=== PATIENT | male | born 1955 | race African-American/Black ===

== ENCOUNTER 2017-03-29 09:27 | Emergency (ER) | payer MEDICAID, OTHER ==
[~2017-03-29] VITALS: Ht 172.7 cm; Wt 105.0 kg
[~2017-03-29 09:27] MED LIST: AMLO10TA80 PO; ASPI-1158 PO; INSLAN SQ; LANTUS; LISI2.5T47 PO; METF500T4 PO
[2017-03-29 10:05] VITALS: BP 132/62
[2017-03-29] MEDS ORDERED: KETOROLAC 60MG/2ML VIAL IM ONE (12:00)
== END 2017-03-29 12:31 | disposition left against medical advice (07) ==
LOC: ER 09:55
DX: R10.31 Right lower quadrant pain (principal); J45.909 Unspecified asthma, uncomplicated; I10 Essential (primary) hypertension; E11.9 Type 2 diabetes mellitus without complications; I25.119 Atherosclerotic heart disease of native coronary artery with unspecified angina pectoris; Z88.0 Allergy status to penicillin; Z88.5 Allergy status to narcotic agent; Z79.82 Long term (current) use of aspirin; Z79.4 Long term (current) use of insulin
CPT/HCPCS: 99281; Z7610

== ENCOUNTER 2017-04-28 10:27 | Emergency (ER) | payer MEDICAID ==
[~2017-04-28] VITALS: Ht 172.7 cm; Wt 105.0 kg
[2017-04-28 10:35] VITALS: BP 130/69
== END 2017-04-28 14:55 | disposition left against medical advice (07) ==
LOC: ER 11:29
DX: Z53.21 Procedure and treatment not carried out due to patient leaving prior to being seen by health care provider (principal); E11.9 Type 2 diabetes mellitus without complications
CPT/HCPCS: 82962

== ENCOUNTER 2017-05-12 16:22 | Emergency (ER) | payer MEDICAID ==
[~2017-05-12] VITALS: Ht 172.7 cm; Wt 104.0 kg
[2017-05-12 16:26] VITALS: BP 144/75
== END 2017-05-12 19:13 | disposition left against medical advice (07) ==
LOC: ER 16:46
DX: R41.0 Disorientation, unspecified (principal); R42 Dizziness and giddiness; Z53.21 Procedure and treatment not carried out due to patient leaving prior to being seen by health care provider
CPT/HCPCS: 82962; Z7610

== ENCOUNTER 2017-05-25 20:26 | Emergency (ER) | payer MEDICAID ==
[~2017-05-25] VITALS: Ht 172.7 cm; Wt 104.5 kg
[2017-05-25] MEDS ORDERED: ASPIRIN 325MG TABLET PO ONE (23:30)
[2017-05-25 23:52] LABS: BASOPHILS % 0.8 % (0.0-2.0); EOSINOPHILS % 4.8 % (0.0-5.0); HEMOGLOBIN. 13.7 g/dL (14.0-18.0); LYMPHOCYTES % 26.4 % (20.0-50.0); MEAN CORPUSCULAR HEMOGLOBIN 30.3 pg (28.0-32.0); MEAN PLATELET VOLUME 9.3 fl (7.4-10.4); MONOCYTES % 7.4 % (2.0-8.0); NEUTROPHILS % 60.6 % (40.0-76.0); PLATELET 189 x1000/uL (130-400); RED BLOOD CELL COUNT 4.51 mill/uL (4.7-6.1); RED CELL DISTRIBUTION WIDTH 14.3 % (11.6-14.6)
[2017-05-26 00:08] LABS: CARBON DIOXIDE 23 mEq/L (21-32); CHLORIDE 104 mEq/L (98-107); TROPONIN I < 0.02 ng/mL (0.00-0.04)
[2017-05-26 00:33] VITALS: BP 149/81
== END 2017-05-26 00:33 | disposition home or self-care (01) ==
LOC: ER 21:13
DX: R07.9 Chest pain, unspecified (principal); E11.65 Type 2 diabetes mellitus with hyperglycemia; J45.909 Unspecified asthma, uncomplicated; I10 Essential (primary) hypertension; Z79.4 Long term (current) use of insulin; Z79.82 Long term (current) use of aspirin; Z88.0 Allergy status to penicillin; Z88.5 Allergy status to narcotic agent
CPT/HCPCS: 36415; 71045; 80053; 82962; 83690; 84484; 85025; 93005; 99285

== ENCOUNTER 2018-02-16 06:31 | Emergency (ER) | payer MEDICAID ==
[~2018-02-16] VITALS: Ht 172.7 cm; Wt 84.0 kg
[~2018-02-16 06:31] MED LIST changes: +METF-414 PO; -METF500T4 PO
[2018-02-16] MEDS ORDERED: SODIUM CHLORIDE 0.9% 1,000 ML IV ONE ×3 (08:23→09:30)
[2018-02-16 08:33] LABS: BASOPHILS % 0.6 % (0.0-2.0); EOSINOPHILS % 2.9 % (0.0-5.0); HEMATOCRIT. 41.2 % (42.0-52.0); LYMPHOCYTES % 17.8 % (20.0-50.0); MEAN CORPUSCULAR HEMOGLOBIN 33.6 pg (28.0-32.0); MEAN CORPUSCULAR VOLUME 98.7 fL (80.0-94.0); MEAN PLATELET VOLUME 10.4 fl (7.4-10.4); MONOCYTES % 10.5 % (2.0-8.0); NEUTROPHILS % 68.2 % (40.0-76.0); PLATELET 188 x1000/uL (130-400); RED BLOOD CELL COUNT 4.18 mill/uL (4.7-6.1); RED CELL DISTRIBUTION WIDTH 14.1 % (11.6-14.6)
[2018-02-16] MEDS ORDERED: INSULIN REGULAR (HUMULIN R) 300UNITS/3ML IV ONE ×2 (08:45→09:40)
[2018-02-16 08:49] LABS: CHLORIDE 100 mEq/L (98-107)
[2018-02-16 08:55] LABS: PHOSPHORUS 3.9 mg/dL (2.5-4.9)
[2018-02-16 09:19] LABS: CLARITY URINE CLEAR (CLEAR); COLOR URINE YELLOW (YELLOW); KETONES URINE NEGATIVE (NEGATIVE); LEUKOCYTE ESTERASE URINE NEGATIVE (NEGATIVE); NITRITE URINE NEGATIVE (NEGATIVE); OCCULT BLOOD URINE NEGATIVE (NEGATIVE); PH URINE 5.5 (4.5-8.0); PROTEIN URINE NEGATIVE (NEGATIVE); SPECIFIC GRAVITY URINE 1.036 (1.005-1.030); UROBILINOGEN URINE 0.2 E.U./dL (0.2-1.0)
[2018-02-16] MEDS ORDERED: INSULIN REGULAR (HUMULIN R) UD 100 UNITS/ML SYR IV ONE (09:30)
[2018-02-16 09:33] LABS: *AMPHETAMINES SCREEN URINE NEGATIVE (NEGATIVE); *BARBITURATES SCREEN URINE NEGATIVE (NEGATIVE)
[2018-02-16 09:34] LABS: *BENZODIAZEPINES SCREEN URINE NEGATIVE (NEGATIVE); *COCAINE SCREEN URINE PRESUMTIVE POSITIVE (NEGATIVE); CANNABINOID URINE SCREEN NEGATIVE (NEGATIVE); METHADONE URINE SCREEN NEGATIVE (NEGATIVE); OPIATES URINE SCREEN NEGATIVE (NEGATIVE); PHENCYCLIDINE URINE SCREEN NEGATIVE (NEGATIVE)
[2018-02-16 12:26] VITALS: BP 110/72
== END 2018-02-16 12:29 | disposition home or self-care (01) ==
LOC: ER 06:31
DX: E11.65 Type 2 diabetes mellitus with hyperglycemia (principal); M79.672 Pain in left foot; M79.671 Pain in right foot; F17.200 Nicotine dependence, unspecified, uncomplicated; Z88.0 Allergy status to penicillin; Z88.5 Allergy status to narcotic agent; Z79.899 Other long term (current) drug therapy
CPT/HCPCS: 36415; 80053; 80305; 81003; 82962; 83735; 84100; 84484; 85025; 93005; 96361; 96374; 99285; J1815; J7030

== ENCOUNTER 2018-04-01 21:20 | Inpatient (IN) | payer MEDICAID ==
[~2018-04-01] VITALS: Ht 172.7 cm; Wt 76.2 kg
[2018-04-02] MEDS ORDERED: SODIUM CHLORIDE 0.9% 1,000 ML IV ONE ×2 (00:05→03:25)
[2018-04-02] MEDS ORDERED: INSULIN REGULAR (HUMULIN R) 300UNITS/3ML SUBCUT ONE (00:15)
[2018-04-02 00:37] LABS: BASOPHILS % 0.6 % (0.0-2.0); EOSINOPHILS % 2.2 % (0.0-5.0); HEMOGLOBIN. 14.8 g/dL (14.0-18.0); LYMPHOCYTES % 22.3 % (20.0-50.0); MEAN CORPUSCULAR HEMOGLOBIN 33.8 pg (28.0-32.0); MEAN CORPUSCULAR VOLUME 100.3 fL (80.0-94.0); MONOCYTES % 8.6 % (2.0-8.0); NEUTROPHILS % 66.3 % (40.0-76.0); PLATELET 180 x1000/uL (130-400); RED BLOOD CELL COUNT 4.39 mill/uL (4.7-6.1); RED CELL DISTRIBUTION WIDTH 14.4 % (11.6-14.6)
[2018-04-02 00:43] LABS: CHLORIDE 96 mEq/L (98-107)
[2018-04-02 00:47] LABS: ETHANOL BLOOD < 10 mg/dL
[2018-04-02 00:51] LABS: BETA HYDROXYBUTYRATE 0.7 mMol/L (0.0-0.3)
[2018-04-02 01:41] LABS: INR 0.9; PROTHROMBIN TIME 9.4 sec (9.1-11.1)
[2018-04-02 02:13] LABS: CLARITY URINE CLEAR (CLEAR); COLOR URINE YELLOW (YELLOW); KETONES URINE TRACE (NEGATIVE); LEUKOCYTE ESTERASE URINE NEGATIVE (NEGATIVE); NITRITE URINE NEGATIVE (NEGATIVE); OCCULT BLOOD URINE NEGATIVE (NEGATIVE); PH URINE 5.5 (4.5-8.0); PROTEIN URINE NEGATIVE (NEGATIVE); SPECIFIC GRAVITY URINE 1.038 (1.005-1.030); UROBILINOGEN URINE 0.2 E.U./dL (0.2-1.0)
[2018-04-02 02:23] LABS: *AMPHETAMINES SCREEN URINE NEGATIVE (NEGATIVE); *BARBITURATES SCREEN URINE NEGATIVE (NEGATIVE); *BENZODIAZEPINES SCREEN URINE NEGATIVE (NEGATIVE); *COCAINE SCREEN URINE PRESUMTIVE POSITIVE (NEGATIVE); METHADONE URINE SCREEN NEGATIVE (NEGATIVE); OPIATES URINE SCREEN NEGATIVE (NEGATIVE)
[2018-04-02 02:24] LABS: CANNABINOID URINE SCREEN NEGATIVE (NEGATIVE); PHENCYCLIDINE URINE SCREEN NEGATIVE (NEGATIVE)
[2018-04-02] MEDS ORDERED: ACETAMINOPHEN 325MG TABLET PO PRN (08:45)
[2018-04-02] MEDS ORDERED: DEXTROSE 50% WATER 50ML SYRINGE IV PRN (08:45)
[2018-04-02] MEDS ORDERED: ONDANSETRON HCL 4MG/2ML INJ IV PRN (08:45)
[2018-04-02] MEDS ORDERED: CLONIDINE 0.1MG TABLET PO PRN (08:45)
[2018-04-02 13:00] VITALS: BP 159/100
[2018-04-02 13:15] VITALS: BP 159/100
[2018-04-02] MEDS: INSULIN LISPRO 100 UNITS/ML SUBCUT SCH ×3 (15:17→21:58)
[2018-04-02 16:40] VITALS: BP 140/76
[2018-04-02] MEDS: BLOOD SUGAR DIAGNOSTIC STRIP TEST SCH ×2 (18:10→21:00)
[2018-04-02 18:54] VITALS: BP 159/88
[2018-04-02] MEDS: AMLODIPINE 5MG TABLET PO SCH ×2 (19:02→20:22)
[2018-04-02] MEDS: SODIUM CHLORIDE 0.45% 1,000 ML IV SCH ×2 (19:12→19:19)
[2018-04-02] MEDS ORDERED: INSULIN LISPRO 100 UNITS/ML SUBCUT SCH (19:45)
[2018-04-02 19:56] VITALS: BP 147/80
[2018-04-02] MEDS: LOSARTAN POTASSIUM 50 MG TABLET PO SCH (20:23)
[2018-04-02] MEDS ORDERED: INSULIN LISPRO 100 UNITS/ML SUBCUT NR (22:00)
[2018-04-02] MEDS ORDERED: INSULIN GLARGINE UD 100 UNITS/ML SYR SUBCUT SCH (22:00)
[2018-04-02] MEDS: INSULIN GLARGINE UD 100 UNITS/ML SYR SUBCUT SCH (22:02)
[2018-04-03] VITALS (7 sets, daily range): BP systolic 122–140; BP diastolic 67–89
[2018-04-03] MEDS: SODIUM CHLORIDE 0.45% 1,000 ML IV SCH ×3 (05:40→18:47)
[2018-04-03] MEDS: BLOOD SUGAR DIAGNOSTIC STRIP TEST SCH ×4 (05:47→20:41)
[2018-04-03] MEDS: GLIPIZIDE 5MG TABLET PO SCH (06:10)
[2018-04-03 08:08] LABS: BASOPHILS % 0.8 % (0.0-2.0); EOSINOPHILS % 2.2 % (0.0-5.0); HEMATOCRIT. 45.1 % (42.0-52.0); HEMOGLOBIN. 15.5 g/dL (14.0-18.0); LYMPHOCYTES % 20.6 % (20.0-50.0); MEAN CORPUSCULAR VOLUME 99.1 fL (80.0-94.0); MEAN PLATELET VOLUME 9.7 fl (7.4-10.4); MONOCYTES % 8.5 % (2.0-8.0); NEUTROPHILS % 67.9 % (40.0-76.0); PLATELET 187 x1000/uL (130-400); RED BLOOD CELL COUNT 4.55 mill/uL (4.7-6.1); RED CELL DISTRIBUTION WIDTH 14.3 % (11.6-14.6)
[2018-04-03] MEDS: LOSARTAN POTASSIUM 50 MG TABLET PO SCH (08:20)
[2018-04-03] MEDS: AMLODIPINE 5MG TABLET PO SCH ×2 (08:21→20:40)
[2018-04-03] MEDS: INSULIN LISPRO 100 UNITS/ML SUBCUT SCH ×4 (08:24→20:41)
[2018-04-03 08:55] LABS: CHLORIDE 98 mEq/L (98-107)
[2018-04-03] MEDS: INSULIN GLARGINE UD 100 UNITS/ML SYR SUBCUT SCH ×2 (11:12→21:55)
[2018-04-03] MEDS ORDERED: NAPHAZOLINE HCL/PHENIR MAL OPHTH SOLN 15ML BOTHEYE PRN (13:45)
[2018-04-04] VITALS: BP 116/68
[2018-04-04] MEDS: SODIUM CHLORIDE 0.45% 1,000 ML IV SCH ×3 (01:43→09:53)
[2018-04-04 04:00] VITALS: BP 121/73
[2018-04-04] MEDS: GLIPIZIDE 5MG TABLET PO SCH (06:19)
[2018-04-04] MEDS: INSULIN LISPRO 100 UNITS/ML SUBCUT SCH ×2 (06:19→13:04)
[2018-04-04] MEDS: BLOOD SUGAR DIAGNOSTIC STRIP TEST SCH ×2 (06:19→11:25)
[2018-04-04 07:02] LABS: BASOPHILS % 0.6 % (0.0-2.0); EOSINOPHILS % 2.5 % (0.0-5.0); HEMATOCRIT. 44.2 % (42.0-52.0); HEMOGLOBIN. 14.9 g/dL (14.0-18.0); LYMPHOCYTES % 26.8 % (20.0-50.0); MEAN CORPUSCULAR HEMOGLOBIN 33.8 pg (28.0-32.0); MEAN CORPUSCULAR VOLUME 100.2 fL (80.0-94.0); MEAN PLATELET VOLUME 10.2 fl (7.4-10.4); MONOCYTES % 8.5 % (2.0-8.0); NEUTROPHILS % 61.6 % (40.0-76.0); PLATELET 184 x1000/uL (130-400); RED BLOOD CELL COUNT 4.42 mill/uL (4.7-6.1)
[2018-04-04 08:00] VITALS: BP 131/65
[2018-04-04 08:14] LABS: CHLORIDE 104 mEq/L (98-107)
[2018-04-04] MEDS: AMLODIPINE 5MG TABLET PO SCH (08:21)
[2018-04-04] MEDS: LOSARTAN POTASSIUM 50 MG TABLET PO SCH (08:21)
[2018-04-04] MEDS: INSULIN GLARGINE UD 100 UNITS/ML SYR SUBCUT SCH (09:43)
[2018-04-04 12:00] VITALS: BP 129/72
[2018-04-04] MEDS ORDERED: AMLO5TAB88 PO (12:21)
[2018-04-04] MEDS ORDERED: LANTUSUD SUBCUT (12:21)
[2018-04-04] MEDS ORDERED: GLIP5TAB12 PO (12:21)
[2018-04-04] MEDS ORDERED: LOSA50TA3 PO (12:21)
[2018-04-04 14:22] VITALS: BP 129/72
== END 2018-04-04 16:20 | disposition home or self-care (01) | DRG 420 ==
LOC: ER 21:20 → EDBEDREQ 04-02 02:56 → EDBEDREQTM 04-02 02:56 → ENRESERV 04-02 10:10 → CANRESERV 04-02 10:10 → ENRESERV 04-02 11:47 → 8WST 04-02 13:11
PROVIDERS: ADMIT Internal Medicine; ATTEND Internal Medicine
DX: E11.65 Type 2 diabetes mellitus with hyperglycemia (principal); K85.90 Acute pancreatitis without necrosis or infection, unspecified; E87.8 Other disorders of electrolyte and fluid balance, not elsewhere classified; E44.1 Mild protein-calorie malnutrition; I10 Essential (primary) hypertension; E87.1 Hypo-osmolality and hyponatremia; J45.909 Unspecified asthma, uncomplicated; F14.90 Cocaine use, unspecified, uncomplicated; H10.219 Acute toxic conjunctivitis, unspecified eye; T50.905A Adverse effect of unspecified drugs, medicaments and biological substances, initial encounter; Y92.89 Other specified places as the place of occurrence of the external cause; Z59.0 Homelessness; Z91.19 Patient's noncompliance with other medical treatment and regimen; Z88.0 Allergy status to penicillin; Z88.5 Allergy status to narcotic agent; Z79.899 Other long term (current) drug therapy; Z68.25 Body mass index [BMI] 25.0-25.9, adult
CPT/HCPCS: 36415; 71045; 80048; 80305; 82010; 82962; 83036; 93005; 96372; 99285; G0482; J1815; J7030

== ENCOUNTER 2020-03-01 07:16 | Emergency (ER) | payer MEDICAID, OTHER ==
[~2020-03-01] VITALS: Ht 172.7 cm; Wt 77.0 kg
[~2020-03-01 07:16] MED LIST changes: -AMLO10TA80 PO; +AMLO5TAB88 PO; +GLIP5TAB12 PO; -INSLAN SQ; -LANTUS; +LANTUSUD SUBCUT; +LISI10TA5 PO; -LISI2.5T47 PO; +LOSA50TA3 PO; -METF-414 PO; +METF-416 PO
[2020-03-01] MEDS ORDERED: SODIUM CHLORIDE 0.9% 1,000 ML IV ONE ×2 (08:45→10:30)
[2020-03-01 10:05] LABS: CHLORIDE 110 mEq/L (98-107)
[2020-03-01 10:09] LABS: BASOPHILS % 0.5 % (0.0-2.0); EOSINOPHILS % 2.6 % (0.0-5.0); HEMATOCRIT. 45.6 % (42.0-52.0); HEMOGLOBIN. 14.9 g/dL (14.0-18.0); MEAN CORPUSCULAR HEMOGLOBIN 32.9 pg (28.0-32.0); MEAN CORPUSCULAR VOLUME 100.5 fL (80.0-94.0); MEAN PLATELET VOLUME 10.8 fl (7.4-10.4); MONOCYTES % 8.1 % (2.0-8.0); NEUTROPHILS % 69.8 % (40.0-76.0); PLATELET 175 x1000/uL (130-400); RED BLOOD CELL COUNT 4.54 mill/uL (4.7-6.1); RED CELL DISTRIBUTION WIDTH 14.6 % (11.6-14.6)
[2020-03-01] MEDS ORDERED: POTASSIUM CHLORIDE 20MEQ TABLET SR PO ONE (10:30)
[2020-03-01] MEDS ORDERED: INSULIN REGULAR (HUMULIN R) UD 100 UNITS/ML SYR IV ONE (10:30)
[2020-03-01] MEDS ORDERED: INSULIN REGULAR (HUMULIN R) 300UNITS/3ML IV NR (10:30)
[2020-03-01 11:16] LABS: CLARITY URINE CLEAR (CLEAR); COLOR URINE YELLOW (YELLOW); KETONES URINE 1+ (NEGATIVE); LEUKOCYTE ESTERASE URINE NEGATIVE (NEGATIVE); NITRITE URINE NEGATIVE (NEGATIVE); OCCULT BLOOD URINE NEGATIVE (NEGATIVE); PROTEIN URINE NEGATIVE (NEGATIVE); SPECIFIC GRAVITY URINE 1.029 (1.005-1.030); UROBILINOGEN URINE 0.2 E.U./dL (0.2-1.0)
[2020-03-01 12:41] VITALS: BP 148/84
== END 2020-03-01 13:06 | disposition home or self-care (01) ==
LOC: ER 07:27
DX: E11.65 Type 2 diabetes mellitus with hyperglycemia (principal); Z91.14 Patient's other noncompliance with medication regimen; J44.9 Chronic obstructive pulmonary disease, unspecified; Z79.82 Long term (current) use of aspirin; Z79.4 Long term (current) use of insulin; Z79.899 Other long term (current) drug therapy; Z88.0 Allergy status to penicillin; Z88.5 Allergy status to narcotic agent
CPT/HCPCS: 36415; 80053; 81003; 82962; 85025; 93005; 96361; 96374; 99284; J1815; J7030

== ENCOUNTER 2020-05-03 00:24 | Inpatient (IN) | payer MEDICAID, OTHER ==
[~2020-05-03] VITALS: Ht 175.3 cm; Wt 77.1 kg
[~2020-05-03 00:24] MED LIST changes: -ASPI-1158 PO; +ASPI-1406 PO; +LISI10TA26 PO; -LISI10TA5 PO
[2020-05-03] MEDS ORDERED: ACETAMINOPHEN 325MG TABLET PO STA (08:22)
[2020-05-03] MEDS ORDERED: CLINDAMYCIN 600 MG in DEXTROSE 5% WATER 50 ML IV ONE (08:30)
[2020-05-03] MEDS ORDERED: CLINDAMYCIN 600MG PREMIX 50 ML IV SCH (09:15)
[2020-05-03 09:27] LABS: BASOPHILS % 0.9 % (0.0-2.0); EOSINOPHILS % 2.3 % (0.0-5.0); HEMATOCRIT. 46.2 % (42.0-52.0); HEMOGLOBIN. 15.4 g/dL (14.0-18.0); LYMPHOCYTES % 22.8 % (20.0-50.0); MEAN CORPUSCULAR HEMOGLOBIN 32.9 pg (28.0-32.0); MEAN CORPUSCULAR VOLUME 98.9 fL (80.0-94.0); MEAN PLATELET VOLUME 9.4 fl (7.4-10.4); MONOCYTES % 9.8 % (2.0-8.0); NEUTROPHILS % 64.2 % (40.0-76.0); PLATELET 251 x1000/uL (130-400); RED BLOOD CELL COUNT 4.67 mill/uL (4.7-6.1); RED CELL DISTRIBUTION WIDTH 14.6 % (11.6-14.6)
[2020-05-03 09:35] LABS: CHLORIDE 99 mEq/L (98-107)
[2020-05-03 09:39] LABS: OPIATES URINE SCREEN NEGATIVE (NEGATIVE)
[2020-05-03 09:40] LABS: *AMPHETAMINES SCREEN URINE NEGATIVE (NEGATIVE); *BARBITURATES SCREEN URINE NEGATIVE (NEGATIVE); *BENZODIAZEPINES SCREEN URINE NEGATIVE (NEGATIVE); *COCAINE SCREEN URINE PRESUMTIVE POSITIVE (NEGATIVE); CANNABINOID URINE SCREEN NEGATIVE (NEGATIVE); PHENCYCLIDINE URINE SCREEN PRESUMTIVE POSITIVE (NEGATIVE)
[2020-05-03 09:41] LABS: METHADONE URINE SCREEN NEGATIVE (NEGATIVE)
[2020-05-03] MEDS ORDERED: SODIUM CHLORIDE 0.9% 1,000 ML IV ONE (10:00)
[2020-05-03 13:30] VITALS: BP 139/75
[2020-05-03] MEDS ORDERED: ONDANSETRON HCL 4MG/2ML INJ IV PRN (13:30)
[2020-05-03] MEDS ORDERED: DEXTROSE 50% WATER 50ML SYRINGE IV PRN (13:30)
[2020-05-03] MEDS ORDERED: ACETAMINOPHEN 325MG TABLET PO PRN (13:30)
[2020-05-03 16:00] VITALS: BP 139/75
[2020-05-03] MEDS ORDERED: VANCOMYCIN 1,500 MG in SODIUM CHLORIDE 0.9% 250 ML IV SCH (16:00)
[2020-05-03] MEDS ORDERED: INSULIN GLARGINE UD 100 UNITS/ML SYR SUBCUT SCH (16:00)
[2020-05-03] MEDS: BLOOD SUGAR DIAGNOSTIC STRIP TEST SCH ×2 (17:16→21:00)
[2020-05-03] MEDS: INSULIN LISPRO 100 UNITS/ML SUBCUT SCH ×2 (18:27→21:00)
[2020-05-03] MEDS: INSULIN GLARGINE UD 100 UNITS/ML SYR SUBCUT SCH (22:00)
[2020-05-04] MEDS ORDERED: VANCOMYCIN 1,500 MG in SODIUM CHLORIDE 0.9% 250 ML IV SCH (06:00)
[2020-05-04] MEDS: BLOOD SUGAR DIAGNOSTIC STRIP TEST SCH ×4 (07:20→21:00)
[2020-05-04 08:00] VITALS: BP 129/80
[2020-05-04] MEDS: INSULIN GLARGINE UD 100 UNITS/ML SYR SUBCUT SCH ×2 (10:00→22:25)
[2020-05-04] MEDS: INSULIN LISPRO 100 UNITS/ML SUBCUT SCH ×4 (10:22→21:00)
[2020-05-04 12:00] VITALS: BP 118/78
[2020-05-04 16:00] VITALS: BP 119/71
[2020-05-04 20:00] VITALS: BP 108/62
[2020-05-04] MEDS: VANCOMYCIN 1,500 MG in SODIUM CHLORIDE 0.9% 250 ML IV SCH (22:25)
[2020-05-05] VITALS: BP 133/76
[2020-05-05 04:00] VITALS: BP 125/70
[2020-05-05 06:13] LABS: CHLORIDE 102 mEq/L (98-107)
[2020-05-05] MEDS: BLOOD SUGAR DIAGNOSTIC STRIP TEST SCH (07:20)
[2020-05-05 08:00] VITALS: BP 126/80
[2020-05-05] MEDS: VANCOMYCIN 1,500 MG in SODIUM CHLORIDE 0.9% 250 ML IV SCH (09:14)
[2020-05-05] MEDS: INSULIN LISPRO 100 UNITS/ML SUBCUT SCH (09:20)
[2020-05-05 12:00] VITALS: BP 135/73
[2020-05-05] MEDS ORDERED: VANCOMYCIN 1 G PREMIX 200 ML IV SCH (18:00)
[2020-05-05] MEDS ORDERED: INSULIN GLARGINE UD 100 UNITS/ML SYR SUBCUT SCH (22:00)
== END 2020-05-05 16:08 | disposition left against medical advice (07) | DRG 312 ==
LOC: ER 00:24 → 6EST 09:55 → EDBEDREQ 10:46 → EDBEDREQTM 10:46 → ENRESERV 11:16
PROVIDERS: ADMIT Internal Medicine; ATTEND Internal Medicine
PROC: 0JBR0ZZ Excision of Left Foot Subcutaneous Tissue and Fascia, Open Approach (ICD-10-PCS; principal; 2020-05-04)
PROC: 0JBQ0ZZ Excision of Right Foot Subcutaneous Tissue and Fascia, Open Approach (ICD-10-PCS; 2020-05-04)
PROC: 0HBNXZZ Excision of Left Foot Skin, External Approach (ICD-10-PCS; 2020-05-04)
PROC: 0HBMXZZ Excision of Right Foot Skin, External Approach (ICD-10-PCS; 2020-05-04)
DX: E11.621 Type 2 diabetes mellitus with foot ulcer (principal); E11.65 Type 2 diabetes mellitus with hyperglycemia; L97.519 Non-pressure chronic ulcer of other part of right foot with unspecified severity; E87.1 Hypo-osmolality and hyponatremia; F14.90 Cocaine use, unspecified, uncomplicated; F17.210 Nicotine dependence, cigarettes, uncomplicated; I10 Essential (primary) hypertension; L84 Corns and callosities; J45.909 Unspecified asthma, uncomplicated; Z91.14 Patient's other noncompliance with medication regimen; Z79.4 Long term (current) use of insulin; Z59.0 Homelessness; Z71.51 Drug abuse counseling and surveillance of drug abuser; Z88.0 Allergy status to penicillin; Z88.5 Allergy status to narcotic agent; Z79.82 Long term (current) use of aspirin; F16.90 Hallucinogen use, unspecified, uncomplicated; E11.69 Type 2 diabetes mellitus with other specified complication; M86.171 Other acute osteomyelitis, right ankle and foot; E11.00 Type 2 diabetes mellitus with hyperosmolarity without nonketotic hyperglycemic-hyperosmolar coma (NKHHC)
CPT/HCPCS: 36415; 71045; 73630; 73721; 80048; 80053; 80202; 80305; 82962; 83036; 85025; 85651; 86140; 87070; 87075; 87077; 87186; 87426; 93005; 93923; 99285; C1893; J1815; J3370; J3490; J7030; J7040; J7050; J7060

== ENCOUNTER 2020-08-29 13:28 | Emergency (ER) | payer MEDICAID, OTHER ==
[~2020-08-29] VITALS: Ht 172.7 cm; Wt 775.0 kg
[2020-08-29 14:58] LABS: CHLORIDE 95 mEq/L (98-107); HEMATOCRIT. 47.1 % (42.0-52.0); HEMOGLOBIN. 15.7 g/dL (14.0-18.0); MEAN CORPUSCULAR HEMOGLOBIN 32.7 pg (28.0-32.0); MEAN CORPUSCULAR VOLUME 98.3 fL (80.0-94.0); MEAN PLATELET VOLUME 8.4 fl (7.4-10.4); PLATELET 461 x1000/uL (130-400); RED CELL DISTRIBUTION WIDTH 14.2 % (11.6-14.6)
[2020-08-29 15:01] LABS: INR 0.9; PROTHROMBIN TIME 10.1 sec (9.6-11.0)
[2020-08-29] MEDS ORDERED: SODIUM CHLORIDE 0.9% 1,000 ML IV ONE (15:30)
[2020-08-29 15:52] LABS: CLARITY URINE CLEAR (CLEAR); COLOR URINE YELLOW (YELLOW); KETONES URINE 1+ (NEGATIVE); LEUKOCYTE ESTERASE URINE NEGATIVE (NEGATIVE); NITRITE URINE NEGATIVE (NEGATIVE); OCCULT BLOOD URINE NEGATIVE (NEGATIVE); PROTEIN URINE NEGATIVE (NEGATIVE); SPECIFIC GRAVITY URINE 1.035 (1.005-1.030); UROBILINOGEN URINE 0.2 E.U./dL (0.2-1.0)
[2020-08-29] MEDS ORDERED: INSULIN REGULAR (HUMULIN R) 300UNITS/3ML VIAL SUBCUT ONE (16:00)
[2020-08-29 16:31] LABS: PLATELET ESTIMATE INCREASED
[2020-08-29] MEDS ORDERED: DOXY100C2 MT (17:09)
[2020-08-29] MEDS ORDERED: LIDOCAINE HCL 1% 20ML VIAL (Pyxis) INJ INFIL ONE (17:45)
[2020-08-29] MEDS ORDERED: CEFTRIAXONE SODIUM 500 MG/VIAL IM ONE (17:45)
[2020-08-29 17:50] VITALS: BP 140/78
[2020-09-02 04:07] LABS: NEISSERIA GONORRHOEAE NAA Negative (Negative)
== END 2020-08-29 17:51 | disposition home or self-care (01) ==
LOC: ER 13:28
DX: N48.89 Other specified disorders of penis (principal); L98.8 Other specified disorders of the skin and subcutaneous tissue; E11.65 Type 2 diabetes mellitus with hyperglycemia; L98.499 Non-pressure chronic ulcer of skin of other sites with unspecified severity; I10 Essential (primary) hypertension; J45.909 Unspecified asthma, uncomplicated; Z91.14 Patient's other noncompliance with medication regimen
CPT/HCPCS: 36415; 80053; 81003; 82962; 83605; 85025; 85610; 86592; 86593; 86780; 87040; 87086; 87491; 87591; 96372; 99284; J0696; J1815; J3490; J7030; Z7610